=== PATIENT | male | born 1965 | race Caucasian/White ===

== ENCOUNTER 2021-01-21 19:00 | Emergency (ER) | payer OTHER, SELFPAY ==
--- NOTE | ~2021-01-21 | XR_ITS ---
EXAMINATION: XR ANKLE, RIGHT CLINICAL INFORMATION: Pain. Rolled the ankle. COMPARISON: None TECHNIQUE: AP, lateral, and mortise views of the right ankle. FINDINGS: There is mild soft tissue swelling at lateral malleolus. There is no fracture. No dislocation. Ankle mortise remains congruent XR/XR ankle RT 2V IMPRESSION: Soft tissue swelling at lateral malleolus. No acute osseous abnormality.
[2021-01-21 19:23] VITALS: BP 140/60; PULSE 80; RESP 16; TEMP 36.8; O2SAT 98; BMI 27.0
[2021-01-21] MEDS: Ibuprofen 400 MG TABLET PO (22:33)
[2021-01-21] MEDS: Acetaminophen 325 MG TABLET 975 MG PO (22:33)
--- NOTE | 2021-01-21 23:18 | ED_ITS ---
HPI - Extremity Injury (Lower) General Chief Complaint: Extremity Injury, Lower Stated Complaint: ankle inj Time Seen by Provider: 01/21/21 22:28 Source: patient Mode of arrival: ambulatory History of Present Illness HPI Narrative: 56-year-old male with presentation of persistent right ankle discomfort after he twisted it on 01/10. He denies any worsening of pain or swelling but is concerned today because it has continued to hurt. Related Data Allergies Allergy/AdvReac Type Severity Reaction Status Date / Time No Known Allergies Allergy Verified 01/21/21 19:22 Review of Systems Review of Systems: Pertinent positives and negatives as stated in HPI and 10 point review of systems is otherwise negative. [facility] Past Medical History Source: nursing notes reviewed Medical History Healthy male adult Social History Social History Advance Directives: No Advance Directives Information Provided: No Physical Exam Vital Signs: Vital Signs: Last Vital Signs Temp 98.3 F 01/21/21 19:23 Pulse 80 01/21/21 19:23 Resp 16 01/21/21 19:23 BP 140/60 H 01/21/21 19:23 Pulse Ox 98 01/21/21 19:23 Body Mass Index 27.0 VITAL SIGNS: Reviewed. GENERAL: Well developed, well nourished, in no acute distress. HEAD: Normocephalic/atraumatic EYES: PERRLA, EOMI LUNGS: Normal breath sounds. No adventitious sounds or accessory muscle use. SpO2<98> CARDIOVASCULAR: Regular rate and rhythm without noted murmurs ABDOMEN: Soft, non-tender, non-distended with bowel sounds. RIGHT ANKLE: Mild swelling at the right lateral malleolus, warm foot, capillary refill less than 3 seconds, sensation is intact palpable DP/PT, tenderness to palpation over lateral malleolus but no midfoot tenderness NEUROLOGIC: Alert and oriented x 4. Course Course Course Narrative: 56-year-old male with history and clinical presentation consistent with ankle sprain which was further corroborated by x-ray that was negative for fracture or dislocation. Patient was provided with combination analgesics, Nicola wrap was applied, and patient was instructed to continue with RICE protocol Discharge Plan Discharge Clinical Impression: Ankle sprain and strain Patient Disposition: Home, Self-Care Instructions: Ankle Sprain (ED), Crutch Instructions (ED), R.I.C.E. Treatment (ED) Additional Instructions: 1. Tylenol 1000 mg, orally, every 6 hours as needed for pain control. Do not exceed 4000 mg within 24 hours. 2. Ibuprofen 400 mg, orally with milk or food, every 6 hours as needed for pain control. Take this medication with the Tylenol for improved symptom relief. 3. Follow-up with your primary care provider in 2-3 days for re-evaluation. Return to the ER for acute worsening of symptoms. Referrals: Jameel Reeves MD [Primary Care Provider] - 2 days
[2021-01-21 23:39] VITALS: BP 128/76; PULSE 76; RESP 18; O2SAT 99
== END 2021-01-21 23:42 | disposition home or self-care (01) ==
PROVIDERS: Emergency Provider Student in an Organized Health Care Education/Training Program; PCP Internal Medicine
DX: S93.401A Sprain of unspecified ligament of right ankle, initial encounter (principal); S96.911A Strain of unspecified muscle and tendon at ankle and foot level, right foot, initial encounter; X58.XXXA Exposure to other specified factors, initial encounter; Y93.9 Activity, unspecified; Y92.9 Unspecified place or not applicable; Y99.9 Unspecified external cause status
CPT/HCPCS: 73600; 99283; 99284